=== PATIENT | female | born 1950 | race Caucasian/White ===

== ENCOUNTER → 2016-05-16 | Outpatient (CLI) | payer OTHER ==
--- NOTE | 2016-05-17 09:31 | RADRPT ---
PROCEDURE: I - 123 thyroid uptake and scan CLINICAL INDICATION: 66 -year-old patient with hyperthyroidism. TECHNIQUE: Following the oral administration of 0.2 mCi of I - 123, thyroid uptake and scan was ob tained. COMPARISON: No prior thyroid scans. FINDINGS: 6 hours radioiodine uptake is 10 % (normal range is 5% - 20%). 24 hours radioiodine uptake is 24 % (normal range is 7% - 35%). The thyroid gland demonstrates a mildly enlarged thyroid gland (approximately 1.5 x normal size) wit h slightly heterogeneous distribution of radionuclide throughout the thyroid gland. There is a suggestion of areas of reduced activity along the lateral aspect of the left lobe of the thyroid gland and in the lower pole of the right lobe of the thyroid gland. IMPRESSION: 1. Mildly enlarged thyroid gland with slightly heterogeneous distribution of radionuclide and a sug gestion of areas of reduced activity in the lower pole of the right lobe of the thyroid gland and al amador the lateral portion of the left lobe of the thyroid gland; please correlate further with ultraso und of the thyroid gland. 2. Normal radioiodine uptake. RPTAT: HH .Damaris Hackett MD, Date Time Electronically viewed and signed by .Damaris Hackett MD, on 05/17/2016 09:30 .L/
== END | disposition home or self-care (01) ==
LOC: NUC 09:00
PROVIDERS: ATTEND Internal Medicine
DX: E05.20 Thyrotoxicosis with toxic multinodular goiter without thyrotoxic crisis or storm (principal)
CPT/HCPCS: 78014; A9516